=== PATIENT | female | born 1980 | race Caucasian/White ===

== ENCOUNTER 2024-05-12 14:27 | Emergency (ER) | payer BC, SELFPAY ==
[2024-05-12 14:37] VITALS: BP 144/113
[2024-05-12 15:06] LABS: % Basophils 0.3 % (0-2); % Eosinophils 1.9 % (0-6); % Immature Granulocytes 0.5 % (0-0.5); % Monocytes 5.9 % (1.7-9.3); % Neutrophils 67.4 % (42.2-75.2); Absolute Eosinophils 0.2 10^3/uL (0-0.7); Absolute Immature Granulocytes 0.1 10^3/uL (0-0.05); Absolute Lymphocytes 2.6 10^3/uL (1.2-3.4); Absolute Monocytes 0.7 10^3/uL (0.1-0.6); Absolute Neutrophils 7.4 10^3/uL (1.4-6.5); Hematocrit 39.8 % (37.0-47.0); Hemoglobin 14.1 g/dL (12.0-16.0); Mean Corp Hgb Conc. 35.4 g/dL (33.0-37.0); Mean Corpuscular Hgb 29.4 pg (27.0-31.0); Mean Corpuscular Volume 82.9 fL (81.0-99.0); Mean Platelet Volume 10.5 fL (7.4-10.4); Nucleated Red Blood Cells % 0 %; Platelet Count 396 10^3/uL (130-400); Red Cell Dist. Width 12.3 % (11.5-14.5)
[2024-05-12 15:13] LABS: HCG, Serum Qualitative Screen Negative
[2024-05-12] MEDS: ZOFRAN 4 MG IV (15:16)
[2024-05-12] MEDS: NSS 1000 IV (15:16)
[2024-05-12] MEDS: TORADOL 30 MG IV (15:16)
[2024-05-12 15:17] LABS: ALT (SGPT) 13 U/L (0-35); AST (SGOT) 23 U/L (14-36); Albumin 4.5 g/dl (3.5-5.0); Alkaline Phosphatase 57 U/L (38-126); Blood Urea Nitrogen 14 mg/dl (7-17); Calcium 10.4 mg/dl (8.4-10.2); Carbon Dioxide 20 mmol/L (22-30); Chloride 106 mmol/L (98-107); Glucose 109 mg/dl (70-99); Potassium 4.1 mmol/L (3.5-5.1); Sodium 136 mmol/L (135-145); Total Bilirubin 0.7 mg/dl (0.2-1.3); Total Protein 7.3 g/dl (6.3-8.2); eGFR > 60.00
--- NOTE | 2024-05-12 15:29 | ED.GENMED ---
History of Present Illness
<Amador Miller Jr., PA-C - Last Filed: 05/14/24 14:08>
General
Chief Complaint: Flank Pain
Source: patient
Exam Limitations: none
Time Seen by Provider: 05/12/24 14:42
Nursing documentation reviewed up to this point in time: agreed with
Travel History
Have you had any contact with someone who has COVID-19?: No
Do you have any symptoms of coronavirus? Fever > 100 degrees, chills, cough, shortness of breath, sore throat, loss of taste or smell, muscle aches, or headache?: No
History of Present Illness
History of Present Illness:
44-year-old female presenting to the emergency department today with concerns of severe left-sided flank discomfort over the past few hours has had intermittent pain over the past 2 days but claims symptoms have been much more severe over the past
hour or so. Denies any history of kidney stones did have previous ovarian cyst but this feels much different. Denies any vomiting but has had nausea. No chest pain or shortness of breath no numbness or weakness to the lower extremities.
Review of Systems
<Amador Miller Jr., PA-C - Last Filed: 05/14/24 14:08>
Review of Systems
Allergies reviewed?: Yes
All Other Systems: ROS reviewed and negative except as documented in HPI and ROS
Phy Exam
<Amador Miller Jr., PA-C - Last Filed: 05/14/24 14:08>
Physical Exam
Physical Exam:
GENERAL: Alert , in no apparent distress
EYE: pupils equal and reactive
NECK: Supple, no significant adenopathy.
ENT: o/p clr, mmm.
CARDIAC: Regular rate and rhythm .
LUNGS: Clear breath sounds bilaterally, no acute respiratory distress, no wheezes/rales/rhonchi
ABDOMEN: Soft, without focal tenderness, no r/g, no cvat
NEUROLOGICAL: Alert and oriented, no focal neuro deficits
SKIN: Warm and dry, skin intact.
MUSCULOSKELETAL: No edema, well perfused.
PSYCH: Normal and appropriate interaction.
Course
<Amador Miller Jr., PA-C - Last Filed: 05/14/24 14:08>
Orders/Labs/Results
Orders:
Orders
05/12/24 14:45
Test Result ONCE
05/12/24 14:46
Complete Blood Count/With Diff Urgent
Comprehensive Metabolic Panel Urgent
HCG, Serum Qualitative Screen Urgent
Urinalysis Reflex To Culture Urgent
Date Specimen was Collected: 05/12/24
Time Specimen was Collected: 14:45
Urine Microscopic Reflex Cult Urgent
05/12/24 15:07
CT Abd/pel Without Iv Or Oral Urgent
Comment:
Reason For Exam: left flank pain
0.9% Sodium Chloride 1000 ml [Nss] 1,000 ml IV BOLUS
Ketorolac [Toradol] 30 mg IV NOW STA
Ondansetron Injectable [Zofran] 4 mg IV NOW STA
05/12/24 15:32
HYDROmorphone [Dilaudid] 1 mg IV NOW STA
05/12/24 15:33
HYDROmorphone [Dilaudid] 1 mg .ROUTE .[facility]
05/12/24 19:27
US Pelvis W Transvag Combined Urgent
Comment:
Reason For Exam: L pelvic pain
Abnormal Lab Results
05/12/24
14:46
WBC 11.0 H 10^3/uL
(4.8-10.8)
MPV 10.5 H fL
(7.4-10.4)
Abs Immat Gran (auto) 0.1 H 10^3/uL
(0-0.05)
Absolute Neuts (auto) 7.4 H 10^3/uL
(1.4-6.5)
Absolute Monos (auto) 0.7 H 10^3/uL
(0.1-0.6)
Carbon Dioxide 20 L mmol/L
(22-30)
Glucose 109 H mg/dl
(70-99)
Calcium 10.4 H mg/dl
(8.4-10.2)
Urine Ketones 1+ A
(Negative)
Ur Occult Blood Reflex 1+ A
(Negative)
Urine RBC 3-6 A /HPF
(0-2)
Urine Bacteria (Reflex) Few A
(Negative)
05/12/24 14:46
05/12/24 14:46
Vital Signs
Initial and Last Documented VS:
Initial Vital Signs
Pulse Resp BP Pulse Ox
121 20 144/113 99
05/12/24 14:37 05/12/24 14:37 05/12/24 14:37 05/12/24 14:37
Last Documented Vital Signs
Temp Pulse Resp BP Pulse Ox
97.7 F 82 14 124/77 97
05/12/24 22:01 05/12/24 22:01 05/12/24 18:21 05/12/24 22:01 05/12/24 22:01
<Adiel Beard PA-C - Last Filed: 05/12/24 23:10>
Orders/Labs/Results
Orders:
Orders
05/12/24 14:45
Test Result ONCE
05/12/24 14:46
Complete Blood Count/With Diff Urgent
Comprehensive Metabolic Panel Urgent
HCG, Serum Qualitative Screen Urgent
Urinalysis Reflex To Culture Urgent
Date Specimen was Collected: 05/12/24
Time Specimen was Collected: 14:45
Urine Microscopic Reflex Cult Urgent
05/12/24 15:07
CT Abd/pel Without Iv Or Oral Urgent
Comment:
Reason For Exam: left flank pain
0.9% Sodium Chloride 1000 ml [Nss] 1,000 ml IV BOLUS
Ketorolac [Toradol] 30 mg IV NOW STA
Ondansetron Injectable [Zofran] 4 mg IV NOW STA
05/12/24 15:32
HYDROmorphone [Dilaudid] 1 mg IV NOW STA
05/12/24 15:33
HYDROmorphone [Dilaudid] 1 mg .ROUTE .[facility]
05/12/24 19:27
US Pelvis W Transvag Combined Urgent
Comment:
Reason For Exam: L pelvic pain
Abnormal Lab Results
05/12/24
14:46
WBC 11.0 H 10^3/uL
(4.8-10.8)
MPV 10.5 H fL
(7.4-10.4)
Abs Immat Gran (auto) 0.1 H 10^3/uL
(0-0.05)
Absolute Neuts (auto) 7.4 H 10^3/uL
(1.4-6.5)
Absolute Monos (auto) 0.7 H 10^3/uL
(0.1-0.6)
Carbon Dioxide 20 L mmol/L
(22-30)
Glucose 109 H mg/dl
(70-99)
Calcium 10.4 H mg/dl
(8.4-10.2)
Urine Ketones 1+ A
(Negative)
Ur Occult Blood Reflex 1+ A
(Negative)
Urine RBC 3-6 A /HPF
(0-2)
Urine Bacteria (Reflex) Few A
(Negative)
05/12/24 14:46
05/12/24 14:46
Vital Signs
Initial and Last Documented VS:
Initial Vital Signs
Pulse Resp BP Pulse Ox
121 20 144/113 99
05/12/24 14:37 05/12/24 14:37 05/12/24 14:37 05/12/24 14:37
Last Documented Vital Signs
Temp Pulse Resp BP Pulse Ox
97.7 F 82 14 124/77 97
05/12/24 22:01 05/12/24 22:01 05/12/24 18:21 05/12/24 22:01 05/12/24 22:01
<Amador Miller Jr., PA-C - Last Filed: 05/14/24 14:08>
MDM/Problems Addressed
MDM/Problems Addressed:
44-year-old female presenting to the emergency department today with concerns of left-sided flank pain severe over the past few hours intermittent over the past few days. Upon arrival patient appears very uncomfortable claiming to have discomfort
to the left flank. Initial heart rate elevated however patient is visibly in distress unlikely be cardiac in origin. White count of 11.0 BMP without emergent abnormalities
<Adiel Beard PA-C - Last Filed: 05/12/24 23:10>
*Critical Care Note
Total Time (30-74mins, 75-104mins- exclusive of procedures): Not Applicable
<Adiel Beard PA-C - Last Filed: 05/12/24 23:10>
Update Note
Update Note:
Assumed care of pt at shift change 1800 from Alvin Miller PA-C. Awaiting final CT results, anticipate potential need for pelvic US if CT unrevealing due to the pt's dramatic presentation with severe pain
1920: CT results reviewed. No clear abnormality to explain pain. Pt's pain much improved, reports mild dull discomfort. Made pt aware of incidental finding of liver mass, will need f/u MRI. Given that pt clearly had severe/acute onset of pain on
arrival, will send for pelvic US to eval for hemorrhagic ovarian cyst or ovarian torsion, although no CT findings would suggest either etiology.
2155: US report reviewed. No concerning findings. Unclear etiology to pt's pain. She remains comfortably pain free at this time. Again educated pt on the importance of f/u regarding the liver mass on CT. Stable at time of d/c
ED Attending Note
<Amador Miller Jr., PA-C - Last Filed: 05/14/24 14:08>
-
Portions of this chart may have been created with voice recognition software.� Occasional wrong word or��sound alike� substitutions may have occurred due to the inherent limitations of voice recognition software.
Discharge Plan
Departure
Patient Disposition: Home (Routine Discharge)
Date of Disposition: 05/12/24
Time of Disposition: 22:04
Patient with high blood pressure during this ER visit?: No
Discharge Problem:
Acute left flank pain, Liver mass
Instructions: Flank Pain (DC)
Prescriptions:
No Action
diazepam 5 MG tablet
5 mg PO TIDPRN PRN (Reason: neck pain) Qty: 12 0RF
Referrals:
Jacob Lanza, DO [Family Provider] -
Activity Restrictions/Additional Instructions:
Follow up with your primary care doctor regarding the liver mass and follow up imaging
Interventions
Interventions:
*Risk Screen - Suicide Last Done: 05/12/24 15:26
*General Assessment Last Done: 05/12/24 16:56
*Neglect/Abuse Screening Last Done: 05/12/24 15:26
ED- Fall Risk Assessment Last Done: 05/12/24 15:26
*ED COVID-19 Vaccine History Last Done: 05/12/24 16:56
*Nursing Disposition Last Done: 05/12/24 22:31
YM-Lpooaw-Phcazmktkp Assessment Last Done: 05/12/24 15:00
ED-Female Genitourinary Assessment Last Done: 05/12/24 15:00
Discharge Date and Time
Discharge Date/Time: 05/12/24 22:31
Print Language: TURKMEN
[2024-05-12] MEDS: DILAUDID 1 MG IV (15:34)
[2024-05-12 16:56] VITALS: BMI 24.8
[2024-05-12 17:14] LABS: Urine Albumin Negative (Neg - Trace); Urine Bilirubin Negative (Negative); Urine Character Clear (Clear); Urine Color Yellow; Urine Glucose Negative (Negative); Urine Ketone 1+ (Negative); Urine Leukocyte Negative (Negative); Urine Nitrite Negative (Negative); Urine Occult Blood 1+ (Negative); Urine Urobilinogen Negative (Neg - 1+)
[2024-05-12 17:24] LABS: Urine Bacteria Few (Negative); Urine White Cell 0-2 /HPF (0-5)
[2024-05-12 18:21] VITALS: BP 120/66
[2024-05-12 22:01] VITALS: BP 124/77
== END 2024-05-12 22:31 | disposition home or self-care (01) ==
LOC: EMR 14:27
PROVIDERS: Physician Assistant; EMERGENCY PHYSICIAN Emergency Medicine; FAMILY PHYSICIAN Family Medicine
DX: R10.9 Unspecified abdominal pain (principal); R16.0 Hepatomegaly, not elsewhere classified
CPT/HCPCS: 99284; 96374; 96375; 96361; 74176; 76830; 76856; 80053; 81003; 81015; 84703; 85025